=== PATIENT | male | born 1990 | race Caucasian/White ===

== ENCOUNTER → 2017-03-16 | Outpatient (CLI) | payer OTHER ==
[~2017-03-16] MED LIST: CONRAY-43 43% 50ML VIAL (Q9960) As Ordered ONE
--- NOTE | 2017-03-16 10:30 | REP ---
MR ARTHROGRAM RIGHT SHOULDER: TECHNIQUE: Axial T2 fat sat, coronal oblique T1, T2 fat sat, post arthrogram axial T1 fat sat, proton density, coronal oblique T1 fat sat, T2 sat, sagittal oblique T2 fat sat, ABER T1 fat sat. The rotator cuff tendons are intact with no evidence of rotator cuff tear. Acromioclavicular joint does not demonstrate significant hypertrophic degenerative change. Acromion is not hooked in shape. Biceps tendon is within the bicipital groove with no tenosynovitis. There is no Hill-Sach's deformity No abnormal signal is seen in the deltoid muscle. Biceps labral complex appears intact, but the more posterior aspect of the superior labrum appears torn. The entire anterior labrum and posterior labrum also appear torn. The anterior labral tear extends into the inferior labrum to a mild extent. There is no paralabral cyst. There is no joint effusion. There is moderate chondromalacia of the glenoid cartilage particularly anteriorly and inferiorly with several small subchondral cysts. There is no occult fracture. IMPRESSION: Extensive tears of the anterior and posterior labrum as well as of the posterior aspect of the superior labrum and anterior aspect of the inferior labrum. 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 Signed by Elder Daniels MD 03/17/2017 07:03 P
--- NOTE | 2017-03-16 17:23 | REP ---
RIGHT SHOULDER ARTHROGRAM: The procedure was performed under the direct supervision of Dr. Daniels. The benefits and risks including, but not limited to pain, infection, bleeding, and anaphylaxis were explained to the patient and informed consent was obtained. The right glenohumeral joint space was localized using fluoroscopic guidance. The skin was prepped and draped in a sterile fashion. 1% lidocaine was used as a local anesthetic. Using fluoroscopic guidance a 22-gauge spinal needle was inserted and advanced into the joint. 0.5 mL of Conray-43 was injected to verify placement. 11 mL of a solution containing 20 mL of sterile saline and 0.15 mL of ProHance was injected. The needle was removed and the patient was taken to MRI for postprocedural imaging. The patient tolerated the procedure well and there were no immediate complications. 1 second of fluoroscopy time was utilized for this procedure. Reviewed by MIGUEL Kumar 03/17/2017 08:21 AEdited and Signed by Elder Daniels MD 03/17/2017 07:20 P
== END ==
LOC: M RAD 06:47 → M RADPRO 06:47
PROVIDERS: ATTEND Physician Assistant
DX: M25.511 Pain in right shoulder (principal); S43.491A Other sprain of right shoulder joint, initial encounter; M94.211 Chondromalacia, right shoulder; M85.411 Solitary bone cyst, right shoulder; X58.XXXA Exposure to other specified factors, initial encounter; Y92.9 Unspecified place or not applicable; Y93.9 Activity, unspecified; Y99.9 Unspecified external cause status
CPT/HCPCS: 23350; 73223; 77002; A9576; Q9960